=== PATIENT | female | born 1975 | race Caucasian/White ===

== ENCOUNTER 2018-08-03 06:40 | Inpatient (IN) | payer OTHER ==
[~2018-08-03] VITALS: Ht 157.5 cm; Wt 81.6 kg
[2018-08-03 06:40] VITALS: BP 148/71
--- NOTE | 2018-08-03 06:40 | NUR ---
BIB WHEELCHAIR TO ER BED 7
--- NOTE | 2018-08-03 06:42 | NUR ---
PT BIB FRIEND C/O EPIGASTRIC PAIN. PT STATES EPIGASTRIC PAIN STARTED YESTERDAY, HAS GRADUALLY INCREASED THROUGH OUT THE DAY; STATES PAIN 10/10 CRAMPING EPIGASTRIC PAIN THAT RADIATES TO BACK; W/ N/V. +NAUSEA, W/O VOMITING AT THIS TIME. +TENDERNESS W/ PALPATION TO SITE. DENIES HOME MEDS FOR PAIN RELIEF. PT CRYING, MOANING, AND MOVING BACK IN FOURTH IN BED GAURDING ABD. LBM: 08/02/18 WNL, PER PT. PT IN BED, SAFETY PRECAUTIONS IN PLACE; BEDRAILS UP X2. ERMD AWARE OF PT STATUS. WILL CONTINUE TO MONITOR. PMH: GALLSTONES
[2018-08-03] MEDS ORDERED: MORPHINE SULFATE 4 MG/ML SYR IVP ONE ×2 (06:45→08:10)
[2018-08-03] MEDS ORDERED: ONDANSETRON 4 MG/2 ML VIAL IVP ONE ×2 (06:45→08:10)
--- NOTE | 2018-08-03 06:45 | NUR ---
Patient being evaluated by physician at bedside.
--- NOTE | 2018-08-03 06:46 | NUR ---
Cheyenne collier in [facility] - 08/03/18 at 0646 by MEDDM BIB WHEELCHAIR TO ER BED 7
--- NOTE | 2018-08-03 07:05 | NUR ---
LABS DRAWN BY RN AND SENT TO LAB.
--- NOTE | 2018-08-03 07:05 | NUR ---
PT STATE PAIN HAS DECREASED AND SHE FEEL RELIEF, PT O2 SAT AROUND 90; PT PLACED ON 2L NC AT THIS TIME.
--- NOTE | 2018-08-03 07:12 | NUR ---
US AT BEDSIDE.
--- NOTE | 2018-08-03 07:19 | NUR ---
Pt report given to CASANDRA Hopson. Transfer of care at this time.
--- NOTE | 2018-08-03 07:20 | NUR ---
Received report from studio grip RN. Pt. resting in bed A/OX4. Lungs clear. Abdomen soft, round and tender. active bowel sound. Deenies pain at tghis time. VSS on monitor. No N/V noted. Will continue to monitor.
--- NOTE | 2018-08-03 07:22 | NUR ---
DR. BRIDGES BEDSIDE EVALUATING PT
--- NOTE | 2018-08-03 07:23 | NUR ---
Evaluated by [place] RICHARDS.
[2018-08-03 07:24] LABS: BASOPHILS % (AUTO) 0.5 % (0.0-2.0); EOSINOPHILS # (AUTO) 0.1 K/uL (0-0.4); EOSINOPHILS % (AUTO) 1.2 % (0.0-4.0); HEMATOCRIT 35.4 % (36-48); HEMOGLOBIN 11.7 g/dL (12.0-16.0); LYMPHOCYTES % (AUTO) 19.5 % (20.5-51.1); MEAN CORPUSCULAR HEMOGLOBIN 28 pg (27-31); MEAN CORPUSCULAR HGB CONC 33 g/dL (33-37); MEAN CORPUSCULAR VOLUME 86.1 fL (80-94); MONOCYTES # (AUTO) 0.3 K/uL (0.8-1.0); MONOCYTES % (AUTO) 5.2 % (1.7-9.3); NEUTROPHILS # (AUTO) 3.9 K/uL (1.8-7.7); NEUTROPHILS % (AUTO) 73.6 % (42.2-75.2); PLATELET COUNT (AUTO) 162 K/uL (140-450); RED BLOOD CELL COUNT(AUTO) 4.11 MIL/uL (4.20-5.40); RED CELL DISTRIBUTION WIDTH 15.2 % (11.6-13.7); WHITE BLOOD COUNT (AUTO) 5.3 K/uL (4.8-10.8)
[2018-08-03 07:42] LABS: ANION GAP 12.9 (8-16); CARBON DIOXIDE 27.7 mmol/L (21-32); CREATININE 0.7 mg/dL (0.6-1.3); POTASSIUM 3.6 mmol/L (3.5-5.1)
[2018-08-03 07:48] LABS: ALBUMIN 3.3 g/dL (3.4-5.0); TOTAL BILIRUBIN 1.3 mg/dL (0.0-1.0)
[2018-08-03] MEDS ORDERED: NACL 0.9% 1,000 ML IV ONE (08:10)
[2018-08-03] MEDS ORDERED: cefTRIAXone 2,000 MG in DEXTROSE 5% 100 ML IV ONE (08:10)
--- NOTE | 2018-08-03 08:20 | NUR ---
PT ENCOURAGED TO GIVE URINE SAMPLE. PT STATED THAT SHE IS NOT READY TO URINATE AT THIS TIME.
--- NOTE | 2018-08-03 08:21 | NUR ---
LAB AT BEDSIDE
--- NOTE | 2018-08-03 08:34 | NUR ---
PT TAKEN TO CT.
[2018-08-03] MEDS ORDERED: cefTRIAXone 2,000 MG VIAL ONE (08:37)
--- NOTE | 2018-08-03 08:45 | NUR ---
PT RETURNED FROM CT [facility]IA [facility]
--- NOTE | 2018-08-03 08:45 | NUR ---
PT RETURNED FROM CT
[2018-08-03] MEDS ORDERED: ZOLPIDEM 5 MG TAB PO PRN (09:20)
[2018-08-03] MEDS ORDERED: DOCUSATE SODIUM 100 MG GELCAP PO PRN (09:20)
[2018-08-03] MEDS ORDERED: MORPHINE SULFATE 2 MG/ML SYR IVP PRN (09:20)
[2018-08-03] MEDS ORDERED: ACETAMINOPHEN 325 MG TAB PO PRN (09:20)
--- NOTE | 2018-08-03 10:01 | NUR ---
PT BEING RE-EVALUATED BY [place] RICHARDS AT THIS TIME.
--- NOTE | 2018-08-03 10:27 | NUR ---
Patient admitted to care of Dr. Liu. Admited to MST 106A. Transferred to the room on stable condition. Belongings list completed. BELONGINGS TAKEN WITH PT. Report to CASANDRA Cadet.
--- NOTE | 2018-08-03 10:27 | NUR ---
RECEIVED BED SIDE REPORT FROM STUDENT ACTIVITIES DIRECTORCASANDRA MCCLURE. PT CRYING AND IN SEVERE PAIN. PT BROUGHT IN VIA GURNEY. PT AMBUALTED FROM HALLWAY TO BED BUT HAD SEVERE PAIN WHILE AMBULATING. PT STATED TAHT SHE FEELS "1/10 STABBING ABDOMINAL PAIN" THAT RADIATES TO THE BACK, WORSE WITH MOVEMENTS. SKIN INTACT. OLD SCAR FROM IN LOWER ABDOMINAL REGION. R AC 20G. (BRENT) AT BEDSIDE. PT A/OX4, PT STATED THAT THE ABD PAIN STARTED LAST NIGHT WHEN SHE WAS EATING SYRIAC FRIES. WILL CONTINUE TO MONITOR
[2018-08-03] MEDS: HYDROcodone/APAP 5/325 MG 1 TAB TAB PO PRN ×2 (10:44→15:11)
--- NOTE | 2018-08-03 10:45 | NUR ---
CAME TO EVALUATE PT. ORDERED TORADOL FOR PAIN, NOT MORPHINE BECAUSE MORPHINE WILL MAKE PANCREATITIS WORSE. GAVE NORCO FOR 10/10 STABBING PAIN
[2018-08-03 10:48] LABS: PROTHROMBIN TIME 9.5 secs (10.8-13.4)
[2018-08-03 11:02] LABS: FREE T4 (FREE THYROXINE) 1.3 ng/dL (0.76-1.46); MAGNESIUM 1.4 mg/dL (1.8-2.4); PHOSPHORUS 2.4 mg/dL (2.5-4.9); THYROID STIMULATING HORMONE 0.68 uIU/mL (0.34-3.74)
[2018-08-03] MEDS: DEXT 5% / NACL 0.45% 1,000 ML IV SCH ×3 (11:06→20:55)
[2018-08-03] MEDS: ONDANSETRON 4 MG/2 ML VIAL IM/IVP PRN ×2 (11:17→21:08)
[2018-08-03] MEDS: KETOROLAC 30 MG/ML VIAL IVP PRN ×2 (11:20→21:08)
--- NOTE | 2018-08-03 12:00 | NUR ---
HUNG ZOSYN. PT STATED THAT SHE FELT ITCHYNESS IN HER HANDS AND SAID THAT HER TONSILS FELT ENLARGED WITH A LITTLE BIT OF TROUBLE BREATHING. LOOKED IN HER MOUTH, TONSILS DO NOT LOOK ENLARGED. STOPPED ZOSYN. AFTER 10 MIN OF STOPPING ABX, PT STATED THAT THE ITCHYNESS WENT AWAY. WILL NOTIFY RESIDENT
[2018-08-03 12:25] VITALS: BP 152/96
[2018-08-03] MEDS ORDERED: PIPER/TAZO 3.375GM/D5W PREMIX 50 ML IV SCH (13:00)
--- NOTE | 2018-08-03 13:30 | NUR ---
PAGED TO NOTIFY HIM ABOUT PT'S ALLERGIC REACTION TO ZOSYN AND ADMIT ORDERS.
[2018-08-03 13:32] LABS: APPEARANCE,URINE CLEAR (CLEAR); BILIRUBIN,URINE 1+ (NEGATIVE); BLOOD, URINE NEGATIVE (NEGATIVE); COLOR,URINE YELLOW (YELLOW); LEUKOCYTE ESTERASE ,URINE NEGATIVE (NEGATIVE); NITRITE, URINE POSITIVE (NEGATIVE); PH,URINE 7.5 (5.0-9.0); UGLUCOSE NEGATIVE (NEGATIVE)
[2018-08-03 13:39] LABS: BARBITURATE, URINE NEG. ng/ml (NEG <=200); BENZODIAZEPINE, URINE NEG. ng/mL (NEG <=200); CANNABINOID, URINE NEG. ng/mL (NEG <=50); COCAINE, URINE NEG. ng/mL (NEG <=300); OPIATE, URINE POS. ng/mL (NEG <=2000); PHENCYCLIDINE SCREEN,URINE NEG. ng/mL (NEG <=25)
--- NOTE | 2018-08-03 13:45 | NUR ---
ORDERED LEVAQUIN 500MG DAILY AND FLAGYL 500MG Q8HTO BE STARTED AND TO PUT IN A CONSULT ORDER FOR .
[2018-08-03] MEDS ORDERED: metroNIDAZOLE 500 MG/NS PREMIX 100 ML IV SCH (14:00)
[2018-08-03 14:11] LABS: RBC,URINE 0-5 /HPF (0-5); WBC,URINE 0-5 /HPF (0-5)
--- NOTE | 2018-08-03 15:02 | NUR ---
CALLED FOR CONSULT PER 'S ORDER. GAVE HIM ASSESSMENT AND LAB INFORMATION. ORDERED TYPE AND SCREEN FOR TOMORROW. FLAGYL ABX FINISHED, NO ALLERGIC REACTION NOTED, PT STATES SHE FEELS NO ITCHYNESS. WILL CONTINUE TO MONITOR
[2018-08-03] MEDS: LEVOFLOXACIN 500 MG/D5W PREMIX 100 ML IV SCH (15:33)
[2018-08-03 16:00] VITALS: BP 144/85
--- NOTE | 2018-08-03 19:18 | NUR ---
GAVE BEDSIDE REPORT TO BROKE HANDLER RN. PT IN STABLE CONDITION
--- NOTE | 2018-08-03 19:20 | NUR ---
RECEIVED PT SLEEPING, EASILY AROUSABLE, DENIES PAIN AT THIS TIME, IVF INFUSING WELL, MAINTAINED ON NPO EXCEPT MEDS, PLAN OF CARE DISCUSSED, SAFETY MEASURES IN PLACE, CALL LIGHT WITHIN REACH.
[2018-08-03] MEDS: metroNIDAZOLE 500 MG/NS PREMIX 100 ML IV SCH (20:55)
--- NOTE | 2018-08-03 21:10 | NUR ---
PT COMPLAINING OF PAIN AND NAUSEA, NO VOMITING NOTED, TORADOL AND ZOFRAN GIVEN PRN, DUE FLAGYL IVPB ADMINISTERED, ALL NEEDS ATTENDED.
[2018-08-03] MEDS ORDERED: MAG SULF 2000 MG/WATER PREMIX 50 ML IV SCH (22:00)
--- NOTE | 2018-08-03 22:20 | NUR ---
PT SLEEPING, NO SIGNS OF PAIN, MAG-RIDER IV STARTED, MONITORED CLOSELY.
[2018-08-04] VITALS: BP 121/69
--- NOTE | 2018-08-04 | NUR ---
PT SLEEPING, AROUSABLE TO VERBAL STIMULI, VITAL SIGNS STABLE, DENIES PAIN, IVF INFUSING WELL, CONTINUE TO MONITOR CLOSELY.
[2018-08-04] MEDS: ONDANSETRON 4 MG/2 ML VIAL IM/IVP PRN (02:07)
[2018-08-04] MEDS: DEXT 5% / NACL 0.45% 1,000 ML IV SCH ×5 (02:09→22:56)
--- NOTE | 2018-08-04 02:10 | NUR ---
PT VOMITING WITH CLEAR VOMITUS 100ML, MEDICATED WITH ZOFRAN IVP WITH GOOD RESULT, PT WENT BACK TO SLEEP, MONITORED CLOSELY.
[2018-08-04] MEDS: metroNIDAZOLE 500 MG/NS PREMIX 100 ML IV SCH ×3 (05:11→20:13)
--- NOTE | 2018-08-04 05:20 | NUR ---
PT AMBULATED TO BR WITH STEADY GAIT, VOIDED FREELY, MONITORED CLOSELY.
[2018-08-04 06:31] LABS: ALBUMIN 2.7 g/dL (3.4-5.0); ANION GAP 9.3 (8-16); CARBON DIOXIDE 27.1 mmol/L (21-32); CREATININE 0.6 mg/dL (0.6-1.3); MAGNESIUM 2.2 mg/dL (1.8-2.4); PHOSPHORUS 2.8 mg/dL (2.5-4.9); POTASSIUM 3.4 mmol/L (3.5-5.1); TOTAL BILIRUBIN 0.4 mg/dL (0.0-1.0)
[2018-08-04 06:32] LABS: AMYLASE 50 U/L (25-115); LIPASE 322 U/L (73-393)
[2018-08-04 06:37] LABS: CHOL/HDL RATIO 2.1 (1-4.5)
[2018-08-04] MEDS: KETOROLAC 30 MG/ML VIAL IVP PRN (07:00)
[2018-08-04 07:15] LABS: BASOPHILS % (AUTO) 0.5 % (0.0-2.0); EOSINOPHILS # (AUTO) 0.1 K/uL (0-0.4); EOSINOPHILS % (AUTO) 2.4 % (0.0-4.0); HEMATOCRIT 31.8 % (36-48); HEMOGLOBIN 10.6 g/dL (12.0-16.0); LYMPHOCYTES # (AUTO) 0.9 K/uL (2.5-16.5); MEAN CORPUSCULAR HEMOGLOBIN 29 pg (27-31); MEAN CORPUSCULAR HGB CONC 33 g/dL (33-37); MEAN CORPUSCULAR VOLUME 86.7 fL (80-94); MONOCYTES # (AUTO) 0.2 K/uL (0.8-1.0); MONOCYTES % (AUTO) 5.8 % (1.7-9.3); NEUTROPHILS # (AUTO) 2.7 K/uL (1.8-7.7); NEUTROPHILS % (AUTO) 69.3 % (42.2-75.2); PLATELET COUNT (AUTO) 148 K/uL (140-450); RED BLOOD CELL COUNT(AUTO) 3.68 MIL/uL (4.20-5.40); RED CELL DISTRIBUTION WIDTH 14.6 % (11.6-13.7); WHITE BLOOD COUNT (AUTO) 3.9 K/uL (4.8-10.8)
--- NOTE | 2018-08-04 07:20 | NUR ---
PT AWAKE, NO SIGNS OF DISTRESS, REPORT GIVEN TO CASANDRA BAUTISTA FOR CONTINUITY OF CARE.
--- NOTE | 2018-08-04 07:21 | NUR ---
RECEIVED BEDSIDE REPORT FROM MOUTHPIECE MAKER NURSE. PATIENT ON MED SURGE FLOOR AND STANDARD PRECAUTIONS IN PLACE. PATIENT AAOX4, ON ROOM AIR, AND AMBULATORY. SKIN INTACT. IV ON R AC 20G INFUSING D51/2NS AT 200, IV PATENT AND INTACT. BED IN LOW POSITION, CALL LIGHT WITHIN REACH, SIDE RAILS X2 UP
[2018-08-04 08:00] VITALS: BP 129/79
[2018-08-04] MEDS: LACTOBACILLUS RHAMNOSUS GG 1 EACH CAP PO SCH (08:25)
--- NOTE | 2018-08-04 08:28 | NUR ---
ADMINISTERED SCHEDULED MEDS. PATIENT TOLERATED WELL
--- NOTE | 2018-08-04 09:16 | NUR ---
PATIENT HAS BEEN SCREENED AND CATEGORIZED MODERATE NUTRITION RISK. PATIENT WILL BE SEEN WITHIN 3-5 DAYS OF ADMISSION. 08/05/18SHANTE RONQUILLO [address]
--- NOTE | 2018-08-04 10:00 | NUR ---
PATIENT SLEEPING, ON ROOM AIR, NO DISTRESS NOTED
--- NOTE | 2018-08-04 12:08 | NUR ---
ADMINISTERED SCHEDULED MED. PATIENT TOLERATED WELL
--- NOTE | 2018-08-04 13:21 | NUR ---
DR. MELTON CALLED. UPDATED THAT AMYLASE AND LIPASE ARE NOW NORMAL. HE STATED HE WILL PERFORM SURGERY TOMORROW AFTERNOON
[2018-08-04] MEDS: LEVOFLOXACIN 500 MG/D5W PREMIX 100 ML IV SCH (15:36)
--- NOTE | 2018-08-04 15:42 | NUR ---
ADMINISTERED SCHEDULED MED. PATIENT TOLERATED WELL
[2018-08-04 16:00] VITALS: BP 143/82
--- NOTE | 2018-08-04 17:00 | NUR ---
FRIENDS AND FAMILY AT BEDSIDE, NO COMPLAINTS AT THIS TIME
--- NOTE | 2018-08-04 19:10 | NUR ---
BEDSIDE REPORT GIVEN TO CASANDRA HENNESSY. PATIENT ENDORSED IN STABLE CONDITION
--- NOTE | 2018-08-04 19:11 | NUR ---
RECEIVED REPORT FROM DAY SHIFT NURSE LILY-RN AT BEDSIDE. PT RESTING IN BED, AOX4, ON ROOM AIR WITH RIGHT AC #20G RUNNING NS 0.9% @200ML/HR. DISCUSSED PLAN OF CARE AND PT VERBALIZED UNDERSTANDING. NO S/S OF RESPIRATORY DISTRESS OR DISCOMFORT NOTED AT THIS TIME. BED IN LOWEST POSITION, BED BREAKS ON, BOTH SIDE RAILS UP. BEDSIDE TABLE AND CALL LIGHT ARE WITHIN REACH. WILL CONTINUE TO MONITOR.
[2018-08-04 20:00] VITALS: BP 131/76
--- NOTE | 2018-08-04 20:00 | NUR ---
VITAL SIGNS TAKEN AND TOLERATED WELL. PT STATED HER PAIN LEVEL IS 5/10 AND WITHIN TOLERABLE LEVEL. SHE WILL LET ME KNOW WHEN IT BECOMES 7/10 AND WHEN SHE WILL REQUEST PAIN MEDICATION. NO S/S OF RESPIRATORY DISTRESS OR DISCOMFORT NOTED AT THIS TIME. WILL CONTINUE TO MONITOR.
[2018-08-04] MEDS: SENNA 8.6 MG TAB PO SCH (20:13)
--- NOTE | 2018-08-04 20:13 | NUR ---
SCHEDULED MEDICATIONS GIVEN AND TOLERATED WELL. NO S/S OF RESPIRATORY DISTRESS OR DISCOMFORT NOTED AT THIS TIME. WILL CONTINUE TO MONITOR.
--- NOTE | 2018-08-04 22:00 | NUR ---
PT SLEEPING IN BED. NO S/S OF RESPIRATORY DISTRESS OR DISCOMFORT NOTED AT THIS TIME. WILL CONTINUE TO MONITOR.
--- NOTE | 2018-08-04 22:56 | NUR ---
NEW BAG OF IVF HUNG AND TOLERATED WELL. NO S/S OF RESPIRATORY DISTRESS OR DISCOMFORT NOTED AT THIS TIME. WILL CONTINUE TO MONITOR.
[2018-08-05] VITALS: BP 127/76
--- NOTE | 2018-08-05 | NUR ---
VITAL SIGNS TAKEN AND TOLERATED WELL. PT CONTINUES TO C/O PAIN 06/19 STATING SHE IS WITHIN TOLERABLE LEVEL AND NOT WANTING PAIN MEDICATION AT THIS TIME. NO S/S OF RESPIRATORY DISTRESS OR DISCOMFORT NOTED AT THIS TIME. WILL CONTINUE TO MONITOR.
--- NOTE | 2018-08-05 02:00 | NUR ---
PT CONTINUES TO SLEEP IN BED. NO S/S OF RESPIRATORY DISTRESS OR DISCOMFORT NOTED AT THIS TIME. WILL CONTINUE TO MONITOR.
[2018-08-05] MEDS: DEXT 5% / NACL 0.45% 1,000 ML IV SCH ×4 (02:45→15:20)
--- NOTE | 2018-08-05 04:00 | NUR ---
PT CONTINUES TO SLEEP IN BED. NO S/S OF RESPIRATORY DISTRESS OR DISCOMFORT NOTED AT THIS TIME. WILL CONTINUE TO MONITOR.
[2018-08-05] MEDS: metroNIDAZOLE 500 MG/NS PREMIX 100 ML IV SCH ×3 (04:24→20:08)
--- NOTE | 2018-08-05 04:24 | NUR ---
SCHEDULED MEDICATION FLAGYL GIVEN AND TOLERATED WELL. NEW BAG OF IVF HUNG AND TOLERATED WELL. NO S/S OF RESPIRATORY DISTRESS OR DISCOMFORT NOTED AT THIS TIME. WILL CONTINUE TO MONITOR.
--- NOTE | 2018-08-05 06:00 | NUR ---
PT CONTINUES TO SLEEP IN BED. NO S/S OF RESPIRATORY DISTRESS OR DISCOMFORT NOTED AT THIS TIME. WILL CONTINUE TO MONITOR.
--- NOTE | 2018-08-05 07:09 | NUR ---
ENDORSED PT CARE TO DAY SHIFT NURSE LILY HAYWARD FOR CONTINUITY OF CARE.
--- NOTE | 2018-08-05 07:10 | NUR ---
RECEIVED BEDSIDE REPORT FROM CASANDRA HENNESSY. PATIENT ON MED SURGE FLOOR AND STANDARD PRECAUTIONS IN PLACE. PATIENT AAOX4, ON ROOM AIR, NO DISTRESS NOTED. SKIN INTACT. PATIENT AMBULATORY AND CONTINENT. IV ON R FA 20G INFUSING DR1/2 NS AT 200, IV PATENT AND INTACT. BED IN LOW POSITION, CALL LIGHT WITHIN REACH, SIDE RAILS X2 UP
[2018-08-05 08:00] VITALS: BP 133/78
[2018-08-05] MEDS: SENNA 8.6 MG TAB PO SCH ×2 (08:08→20:08)
[2018-08-05] MEDS: LACTOBACILLUS RHAMNOSUS GG 1 EACH CAP PO SCH (08:08)
--- NOTE | 2018-08-05 08:11 | NUR ---
ADMINISTERED SCHEDULED MEDS. PATIENT TOLERATED WELL
[2018-08-05] MEDS: ONDANSETRON 4 MG/2 ML VIAL IM/IVP PRN (09:00)
--- NOTE | 2018-08-05 09:00 | NUR ---
PT C/O NAUSEA AND VOMITING X2, ZOFRAN GIVEN PER PRN ORDER, PRIMARY NURSE MADE AWARE.
--- NOTE | 2018-08-05 12:21 | NUR ---
PATIENT AMBULATED TO RESTROOM
--- NOTE | 2018-08-05 12:45 | NUR ---
PATIENT PICKED UP BY OR NURSES
[2018-08-05] MEDS ORDERED: SUCCINYLCHOLINE CHLORIDE 200 MG/10 ML VIAL IVP ONE (12:55)
[2018-08-05] MEDS ORDERED: PROPOFOL 200 MG/20 ML VIAL IV ONE (12:55)
[2018-08-05] MEDS ORDERED: hydrALAZINE 25 MG TAB ONE (12:55)
[2018-08-05] MEDS ORDERED: KETOROLAC 30 MG/ML VIAL ONE (12:55)
[2018-08-05] MEDS ORDERED: DEXAMETHASONE 4 MG/ML VIAL ONE (12:55)
[2018-08-05] MEDS ORDERED: DESFLURANE 240 ML BTL INH ONE (12:55)
[2018-08-05] MEDS ORDERED: ONDANSETRON 4 MG/2 ML VIAL ONE (12:55)
[2018-08-05] MEDS ORDERED: BUPIVACAINE-MPF/EPI 0.25% 30 ML VIAL INJ ONE (13:03)
[2018-08-05] MEDS ORDERED: metroNIDAZOLE 500 MG/NS PREMIX 100 ML IV ONE (13:05)
[2018-08-05] MEDS ORDERED: fentaNYL 0.05 MG/ML VIAL ONE (13:08)
[2018-08-05] MEDS ORDERED: HYDROmorphone PFS 2 MG/ML SYR ONE ×2 (13:09→15:44)
[2018-08-05] MEDS ORDERED: ONDANSETRON 4 MG/2 ML VIAL IVP PRN (13:35)
[2018-08-05] MEDS: HYDROmorphone 1 MG/ML AMP IVP PRN ×3 (15:35→19:25)
[2018-08-05 16:00] VITALS: BP 132/85
--- NOTE | 2018-08-05 16:00 | NUR ---
PATIENT BACK FROM OR, VITALS FOLLOWS BP:132/85 HR: 94 RR: 18 O2: 93% T: 97.7
[2018-08-05] MEDS: LEVOFLOXACIN 500 MG/D5W PREMIX 100 ML IV SCH (16:40)
--- NOTE | 2018-08-05 18:50 | NUR ---
PT CAN'T PERFORM IS OF NOW. PT IS CRYING FROM PAIN. RN AT BEDSIDE. WILL TRY AGAIN WHEN PT IS MORE CALM.
--- NOTE | 2018-08-05 19:19 | NUR ---
BEDSIDE REPORT GIVEN TO LOOM CONTROL CHAIN BUILDER RN. PATIENT ENDORSED IN STABLE CONDITION. PAIN MEDS GIVEN
--- NOTE | 2018-08-05 19:20 | NUR ---
RECEIVED BEDSIDE REPORT FROM DAY SHIFT RN. PT IS AAOX4. ON RA RESPIRATIONS ARE EQUAL AND UNLABORED. PT STATES SHE IS IN PAIN. RN WILL MEDICATE. PT S/P LAP REMI WITH 4 SURGICAL INCISION SENIOR TELECOMMUNICATIONS TECHNICIAN NO DRAINAGE IS NOTED. FAMILY IS AT BEDSIDE. IV ON R FA 22G IVF INFUSING PER ORDERS. PLAN OF CARE DISCUSSED WITH PT. CALL LIGHT IS WITHIN REACH. WILL CONTINUE TO MONITOR.
--- NOTE | 2018-08-05 20:08 | NUR ---
PT STATES PAIN IMPROVED. SCHEDULED MEDICATIONS WERE GIVEN. NO S/S OF DISTRESS. ALL NEEDS MET AT THIS TIME. CALL LIGHT WITHIN REACH.
--- NOTE | 2018-08-05 20:30 | NUR ---
RT AT BEDSIDE TEACHING PT HOW TO USE IS. WILL ENCOURAGE PT TO USE WHENEVER AWAKE. CALL LIGHT WITHIN REACH. WILL ROUND FREQUENTLY.
[2018-08-05] MEDS: HYDROcodone/APAP 5/325 MG 1 TAB TAB PO PRN (22:56)
--- NOTE | 2018-08-05 23:52 | NUR ---
GAVE BEDSIDE REPORT TO SUMMER. ENDORSED IN STABLE CONDITION.
[2018-08-06] VITALS: BP 117/70
--- NOTE | 2018-08-06 | NUR ---
V/S TAKEN ALL STABLE, PATIENT DENIES PAIN AT THIS TIME
[2018-08-06] MEDS: DEXT 5% / NACL 0.45% 1,000 ML IV SCH ×3 (01:20→21:20)
--- NOTE | 2018-08-06 01:45 | NUR ---
PATIENT AMBULATED TO RESTROOM TO URINATE, NEEDS ONE PERSON TO ASSIST, INSTRUCTED PATIENT TO CALL FOR HELP WHEN NEEDING TO GET UP.
--- NOTE | 2018-08-06 02:00 | NUR ---
PATIENT ASKED TO NOT WEAR SCD FOR A WHILE DUE TO BEING HOT, EXPLAINED NEED FOR SCD, PATIENT STATED SHE WILL PUT THEM BACK ON LATER.
--- NOTE | 2018-08-06 02:51 | NUR ---
PATIENT C/O PAIN WILL GIVE NORCO
[2018-08-06] MEDS: HYDROcodone/APAP 5/325 MG 1 TAB TAB PO PRN ×5 (02:52→22:06)
[2018-08-06] MEDS: metroNIDAZOLE 500 MG/NS PREMIX 100 ML IV SCH ×3 (04:41→20:31)
--- NOTE | 2018-08-06 04:43 | NUR ---
DUE FLAGYL GIVEN
--- NOTE | 2018-08-06 06:19 | NUR ---
PATIENT RESTING IN BED, CALL LIGHT WITHIN REACH
[2018-08-06 07:10] LABS: ALBUMIN 2.7 g/dL (3.4-5.0); ANION GAP 11.4 (8-16); CARBON DIOXIDE 28.5 mmol/L (21-32); CREATININE 0.8 mg/dL (0.6-1.3); MAGNESIUM 1.7 mg/dL (1.8-2.4); POTASSIUM 3.9 mmol/L (3.5-5.1); TOTAL BILIRUBIN 0.2 mg/dL (0.0-1.0)
--- NOTE | 2018-08-06 07:23 | NUR ---
RECEIVED BEDSIDE REPORT FROM RN SUMMER. PT STABLE, AWAKE, ALERT AND ORIENTED X4. NO SIGNS OF DISTRESS NOTED. DENIES PAIN OR SOB. NO REDNESS, SWELLING, OR INFLAMMATION NOTED ON IV SITE. CALL SHERIFF WITHIN REACH. BED IN LOWEST POSITION. SAFETY MEASURES IN PLACE. PLAN OF CARE REVIEWED.
--- NOTE | 2018-08-06 07:24 | NUR ---
ENDORSED PATIENT TO DAY SHIFT NURSE, PATIENT STABLE.
[2018-08-06 08:00] VITALS: BP 140/74
[2018-08-06 08:13] LABS: BASOPHILS % (AUTO) 0.3 % (0.0-2.0); EOSINOPHILS % (AUTO) 0.1 % (0.0-4.0); HEMATOCRIT 34.7 % (36-48); HEMOGLOBIN 11.6 g/dL (12.0-16.0); LYMPHOCYTES # (AUTO) 1.1 K/uL (2.5-16.5); LYMPHOCYTES % (AUTO) 11.6 % (20.5-51.1); MEAN CORPUSCULAR HEMOGLOBIN 29 pg (27-31); MEAN CORPUSCULAR HGB CONC 33 g/dL (33-37); MEAN CORPUSCULAR VOLUME 86.2 fL (80-94); MONOCYTES # (AUTO) 0.7 K/uL (0.8-1.0); MONOCYTES % (AUTO) 6.9 % (1.7-9.3); NEUTROPHILS # (AUTO) 7.9 K/uL (1.8-7.7); NEUTROPHILS % (AUTO) 81.1 % (42.2-75.2); PLATELET COUNT (AUTO) 179 K/uL (140-450); RED BLOOD CELL COUNT(AUTO) 4.03 MIL/uL (4.20-5.40); RED CELL DISTRIBUTION WIDTH 15.2 % (11.6-13.7); WHITE BLOOD COUNT (AUTO) 9.7 K/uL (4.8-10.8)
[2018-08-06] MEDS: LACTOBACILLUS RHAMNOSUS GG 1 EACH CAP PO SCH (09:01)
[2018-08-06] MEDS: SENNA 8.6 MG TAB PO SCH ×2 (09:01→20:31)
--- NOTE | 2018-08-06 09:04 | NUR ---
ADMINISTERED SCHEDULED MEDICATIONS AND PRN NORCO FOR 10/10 ABDOMINAL PAIN. PT TOLERATED WELL. WILL CONTINUE TO MONITOR.
[2018-08-06] MEDS: HYDROmorphone 1 MG/ML AMP IVP PRN (10:24)
--- NOTE | 2018-08-06 10:26 | NUR ---
ADMINISTERED PRN DILAUDID FOR 10/10 ABDOMINAL PAIN. PT TOLERATED WELL. NO OTHER NEEDS AT THIS TIME.
--- NOTE | 2018-08-06 11:30 | NUR ---
RECEIVED VERBAL ORDER FROM DR RAMACHANDRAN FOR SOFT DIET AND MAG OX 400MG PO ONCE FOR MAGNESIUM LEVEL OF 1.7. WILL PUT IN ORDER.
[2018-08-06] MEDS ORDERED: MAGNESIUM OXIDE 400 MG TAB PO SCH (12:00)
--- NOTE | 2018-08-06 13:00 | NUR ---
ADMINISTERED SCHEDULED MEDICATIONS, PT TOLERATED WELL. NO OTHER NEEDS AT THIS TIME.
--- NOTE | 2018-08-06 14:29 | NUR ---
ADMINISTERED PRN NORCO FOR 9/10 ABDOMINAL PAIN. PT TOLERATED WELL. WILL CONTINUE TO MONITOR.
[2018-08-06 16:00] VITALS: BP 138/70
[2018-08-06] MEDS: LEVOFLOXACIN 500 MG/D5W PREMIX 100 ML IV SCH (16:13)
--- NOTE | 2018-08-06 16:17 | NUR ---
VITAL SIGNS TAKEN, PT STABLE. ADMINISTERED SCHEDULED LEVAQUIN, PT TOLERATED WELL. NO OTHER NEEDS AT THIS TIME.
--- NOTE | 2018-08-06 17:41 | NUR ---
DR HARRIS CALLED TO NOTIFY THAT PT IS FEELING DIZZY AND LIGHT HEADED WITH AMBULATION AND PAIN IS NOT CONTROLLED BY PO MEDS, HOLD DC PER DR HARRIS.
--- NOTE | 2018-08-06 18:10 | NUR ---
ADMINISTERED PRN NORCO FOR 10/10 ABDOMINAL PAIN. PT TOLERATED WELL. NO OTHER NEEDS AT THIS TIME.
--- NOTE | 2018-08-06 19:05 | NUR ---
ENDORSED PT TO CASANDRA HENNESSY FOR CONTINUITY OF CARE. PT STABLE.
--- NOTE | 2018-08-06 19:06 | NUR ---
RECEIVED REPORT FROM DAY SHIFT NURSE GANGA-RN AT BEDSIDE. PT RESTING IN BED, AOX4, ON ROOM AIR WITH RIGHT FA #20G-SL. DISCUSSED PLAN OF CARE AND VERBALIZED UNDERSTANDING. NO S/S OF RESPIRATORY DISTRESS OR DISCOMFORT NOTED AT THIS TIME. S/P LAP REMI 08/[address] MELTON- 4 INCISIONS. BED IN LOWEST POSITION, BED BREAKS ON, BOTH SIDE RAILS UP. BEDSIDE TABLE AND CALL LIGHT ARE WITHIN REACH. WILL CONTINUE TO MONITOR.
[2018-08-06 20:00] VITALS: BP 134/75
--- NOTE | 2018-08-06 20:00 | NUR ---
VITAL SIGNS TAKEN AND TOLERATED WELL. NO S/S OF RESPIRATORY DISTRESS OR DISCOMFORT NOTED AT THIS TIME. WILL CONTINUE TO MONITOR.
--- NOTE | 2018-08-06 20:31 | NUR ---
SCHEDULED MEDICATIONS GIVEN AND TOLERATED WELL. NO S/S OF RESPIRATORY DISTRESS OR DISCOMFORT NOTED AT THIS TIME. WILL CONTINUE TO MONITOR.
--- NOTE | 2018-08-06 22:06 | NUR ---
PT C/O PAIN 07/20 AND MEDICATED WITH NORCO. PT TOLERATED WELL. NO S/S OF RESPIRATORY DISTRESS OR DISCOMFORT NOTED AT THIS TIME. WILL CONTINUE TO MONITOR.
[2018-08-06] MEDS: LORazepam 2 MG/ML VIAL IM/IVP PRN (23:44)
--- NOTE | 2018-08-06 23:44 | NUR ---
PT HAVING AN ANXIETY ATTACK STATING "I CAN'T SEEM TO GET ENOUGH AIR." I TOOK HER VITAL SIGNS AND SPO2 96%, BP 148/85, HR 80, TEMPERATURE 98.3 WITH PAIN 5/10. ADMINISTERED ATIVAN FOR ANXIETY AND PT WAS ABLE TO RELAX AND FALL ASLEEP.
[2018-08-07] VITALS: BP 148/85
--- NOTE | 2018-08-07 02:00 | NUR ---
PT CONTINUES SLEEPING IN BED. NO S/S OF RESPIRATORY DISTRESS OR DISCOMFORT NOTED AT THIS TIME. WILL CONTINUE TO MONITOR.
--- NOTE | 2018-08-07 04:00 | NUR ---
PT CONTINUES SLEEPING IN BED. NO S/S OF RESPIRATORY DISTRESS OR DISCOMFORT NOTED AT THIS TIME. WILL CONTINUE TO MONITOR.
[2018-08-07] MEDS: metroNIDAZOLE 500 MG/NS PREMIX 100 ML IV SCH ×2 (04:22→12:12)
--- NOTE | 2018-08-07 04:22 | NUR ---
SCHEDULED MEDICATION FLAGYL GIVEN AND TOLERATED WELL. NO S/S OF RESPIRATORY DISTRESS OR DISCOMFORT NOTED AT THIS TIME. WILL CONTINUE TO MONITOR.
--- NOTE | 2018-08-07 06:00 | NUR ---
PT CONTINUES TO SLEEP IN BED. NO S/S OF RESPIRATORY DISTRESS OR DISCOMFORT NOTED AT THIS TIME. WILL CONTINUE TO MONITOR.
--- NOTE | 2018-08-07 07:20 | NUR ---
RECEIVED REPORT FROM GRADUATE INTERNSHIP NURSE. PT IS ASLEEP, LYING IN BED, AROUSABLE TO NAME, ORIENTED X4. RESPIRATIONS EVEN AND UNLABORED ON RA. RADIAL PULSE 85, EVEN AND REGULAR. PT IV ON RT FA 20 GA RUNNING IVF PER ORDER, DRESSING CLEAR, DRY AND INTACT. BS ACTIVE, LBM REPORTED 08/04. ABDOMINAL INCISIONS TO ABDOMEN, NO BLEEDING NOTED. SKIN COLOR IS APPROPRIATE TO ETHNICITY, WARM TO TOUCH. NO EDEMA NOTED TO EXTREMITIES. REVIEWED POC WITH PT, PT VERBALIZED UNDERSTANDING. WILL CONTINUE TO MONITOR.
[2018-08-07 08:00] VITALS: BP 137/98
[2018-08-07] MEDS: HYDROcodone/APAP 5/325 MG 1 TAB TAB PO PRN ×2 (08:04→12:12)
[2018-08-07] MEDS: SENNA 8.6 MG TAB PO SCH (08:04)
[2018-08-07] MEDS: LACTOBACILLUS RHAMNOSUS GG 1 EACH CAP PO SCH (08:04)
[2018-08-07] MEDS: DEXT 5% / NACL 0.45% 1,000 ML IV SCH (08:11)
--- NOTE | 2018-08-07 09:04 | NUR ---
REASSESSED PT FOR PAIN LEVEL, PT IS SLEEPING COMFORTABLY IN BED, NO SIGNS OF DISTRESS AND RESPIRATIONS EVEN AND UNLABORED. WILL CONTINUE TO MONITOR.
--- NOTE | 2018-08-07 09:45 | NUR ---
RECEIVED REPORT FROM ED NURSE. PT LETHARGIC, AROUSABLE TO NAME, TRANSFERRED TO UNIT VIA GURNEY. PT ABLE TO REPOSITION SELF IN BED. AOX4, REQUIRES REMINDERS. BILATERAL RADIAL PULSES 61, EVEN AND REGULAR. IV ON RT UPPER ARM 16 GA AND RT HAND 18 GA RUNNING IVF PER ORDER, DRESSING CLEAN, DRY AND INTACT. RESPIRATIONS EVEN AND UNLABORED ON RA. ABDOMEN IS SOFT AND DISTENDED, LBM UNABLE TO RECALL. PT IS JAUNDICED, YELLOWING OF THE SKIN AND EYES. SKIN IS INTACT, WARM TO TOUCH. NO EDEMA NOTED TO EXTREMITIES. PT GAVE CONTACT NUMBERS OF SISTER SOFIYA RODRIGUEZ AND MYRIAM . PT VERBALIZED THAT WE ARE ABLE TO SHARED PT INFORMATION WITH SISTERS. GIVEN AND EXPLAINED POC WITH PT, PT VERBALIZED UNDERSTANDING. PT PLACE ON FALL PRECAUTIONS, GIVEN YELLOW GOWN, YELLOW ARM BAND, YELLOW SOCKS, AND POSTED YELLOW SIGN ON DOOR. SAFETY MEASURES IN PLACE, BED ON LOW POSITION, BED ALARMS ON. WILL CONTINUE TO MONITOR. Addendum: 08/07/18 at 1029 by Zee Guajardo RN CLARIFICATION: WRONG PATIENT.
[2018-08-07] MEDS: LORazepam 2 MG/ML VIAL IM/IVP PRN (12:50)
--- NOTE | 2018-08-07 15:22 | NUR ---
08/07/18 RD INITIAL ASSESSMENT COMPLETED PLEASE REFER TO NUTRITION ASSESSMENT UNDER CARE ACTIVITY FOR ESTIMATED NUTRITIONAL NEEDS. 1. CONTINUE SOFT DIET TOLERATED 2. RD PROVIDED GALLBLADDER NUTRITION THERAPY EDUCATION. PT ACCEPTED 3. RD TO FOLLOW-UP 3-5 DAYS, MODERATE RISK SHANTE RONQUILLO RD
--- NOTE | 2018-08-07 16:00 | NUR ---
Dr Velázquez at bedside to assess pt. Per physician, pt ok to discharge home today.
[2018-08-07] MEDS ORDERED: ACET-8386 PO (16:28)
--- NOTE | 2018-08-07 17:15 | NUR ---
PT GIVEN DISCHARGE INSTRUCTIONS, FOLLOW-UP APPOINTMENTS AND DISCHARGE MEDICATIONS. ALL PAPERWORK SIGNED, ALL QUESTIONS ANSWERED. BELONGINGS AND PRESCRIPTIONS IN PATIENT POSSESSION. PT VERBALIZED UNDERSTANDING. IV DISCONTINUED, CATHETER INTACT, NO ACTIVE BLEEDING NOTED. PT HAS NO C/O PAIN AT THIS TIME. Addendum: 08/07/18 at 1847 by Zee Guajardo RN ADDITION: PT WILL BE DISCHARGED TO HOME WITH DRAINAGE BAG. DRAINAGE COLOR IS SEROUS WITH NO ODOR. GIVEN INSTRUCTIONS FOR DAILY CARE OF APPLIANCE.
--- NOTE | 2018-08-07 18:30 | NUR ---
PT ASSISTED TO FRONT LOBBY BY STAFF AND DAUGHTER VIA WHEELCHAIR. WRISTBAND REMOVED. PT IS STABLE AT THIS TIME.
== END 2018-08-07 18:30 | disposition home or self-care (01) | DRG 263 ==
LOC: MED 06:40 → MTU 09:20
PROVIDERS: ADMIT Internal Medicine Pulmonary Disease; ATTEND Internal Medicine Pulmonary Disease
PROC: BF131ZZ Fluoroscopy of Gallbladder and Bile Ducts using Low Osmolar Contrast (ICD-10-PCS; 2018-08-05)
PROC: 0FT44ZZ Resection of Gallbladder, Percutaneous Endoscopic Approach (ICD-10-PCS; principal; 2018-08-05 14:00)
DX: K85.10 Biliary acute pancreatitis without necrosis or infection (principal); E44.1 Mild protein-calorie malnutrition; N39.0 Urinary tract infection, site not specified; K83.8 Other specified diseases of biliary tract; E66.9 Obesity, unspecified; K80.20 Calculus of gallbladder without cholecystitis without obstruction; F17.210 Nicotine dependence, cigarettes, uncomplicated; N83.9 Noninflammatory disorder of ovary, fallopian tube and broad ligament, unspecified; F19.10 Other psychoactive substance abuse, uncomplicated; D64.9 Anemia, unspecified; Z83.3 Family history of diabetes mellitus; Z82.49 Family history of ischemic heart disease and other diseases of the circulatory system; Z80.0 Family history of malignant neoplasm of digestive organs; Z90.49 Acquired absence of other specified parts of digestive tract; Z68.32 Body mass index [BMI] 32.0-32.9, adult
CPT/HCPCS: 36415; 76705; 80053; 80305; 81001; 81025; 82150; 83036; 83605; 83690; 83735; 83880; 84100; 84439; 84443; 84479; 84484; 84703; 85025; 85610; 85730; 86886; 86900; 86901; 87040; 87081; 88304; 96365; 96375; 96376; 99285; C1887; J0330; J0696; J1100; J1170; J1885; J1956; J2060; J2270; J2405; J2543; J2704; J3010; J3475; J3490; J7030; Q0092